=== PATIENT | male | born 2000 | race African-American/Black ===

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

== ENCOUNTER 2022-02-12 17:16 | Emergency (ER) | payer SELFPAY ==
[2022-02-12 17:33] VITALS: BP 123/65; PULSE 90; RESP 16; TEMP 36.6; O2SAT 100
--- NOTE | 2022-02-12 18:18 | ED.GENADULT ---
HPI - General Adult General Chief complaint: Upper Respiratory Infection Stated complaint: Sore Throat Source: patient Mode of arrival: ambulatory Limitations: no limitations History of Present Illness HPI narrative: Patient presents for evaluation of sore throat for the last 4 days. He states his girlfriend had similar symptoms prior to the time of his symptom onset. No fever, chills, nausea, vomiting, respiratory symptoms. He is not taking any medications to assist with his symptoms. He admits to vaping e-cigarettes and uses marijuana socially. His employer requested he have a formal medical evaluation before returning to work. Related Data Allergies Allergy/AdvReac Type Severity Reaction Status Date / Time No Known Allergies Allergy Verified 08/09/20 13:22 Review of Systems Review of Systems: CONSTITUTIONAL: Denies fever, chills, or sweats. EYES: Denies visual changes, redness, or discharge. ENT: Reports sore throat. Denies rhinorrhea, congestion, or otalgia. CARDIOVASCULAR: Denies chest pain, palpitations, or edema. RESPIRATORY: Denies cough or dyspnea. GASTROINTESTINAL: Denies abdominal pain, nausea, vomiting, or diarrhea. GENITOURINARY: Denies dysuria or hematuria. SKIN: Denies rash or itching. MUSCULOSKELETAL: Denies back pain, joint pain, or myalgia. NEUROLOGIC: Denies headache, numbness, dizziness, or weakness. PSYCHIATRIC: Denies anxiety or depression. 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 Per patient Asthma Seasonal allergies Surgical History Surgical History No significant past surgical history Family History Family History Other Asthma Diabetes mellitus Family history of malignant neoplasm Hypertension Social History Social History Smoking status: Current every day smoker Tobacco type: e-cigarettes/vaping Alcohol intake: never Substance use: current Substance use type: marijuana Living arrangements: with friend(s) Additional occupation/education comments: Works in [employer] industry Gender identity (if verbalized by the patient): Male Sexual Orientation (if Verbalized by the Patient): Straight or Heterosexual Spiritual care concerns: No Exam Narrative: GENERAL: Well-appearing, well-nourished, and in no acute distress. HEAD: Normocephalic, atraumatic. EYES: PERRLA and EOMI. ENT: Nares clear, no rhinorrhea or epistaxis. Mucous membranes moist. Bilateral tonsillar enlargement with white exudate. Uvula is midline. Bilateral TMs pearly carranza nonbulging NECK: Supple. No adenopathy or masses. No carotid bruits or JVD CHEST: Clear to auscultation. No respiratory distress. No wheezes rales or rhonchi HEART: Regular rate and rhythm. No murmur heard. Normal peripheral pulses. ABDOMEN: Soft, nontender, nondistended, normal active bowel sounds. EXTREMITIES: Normal range of motion. No edema. SKIN: Warm, dry, no rash. NEURO: No focal deficits. Alert and oriented x3. PSYCH: Normal mood and affect. Course Course Emergency Course: This is a 21-year-old male who present with complaints of sore throat. Rapid strep was negative. He has bilateral tonsillar enlargement and white exudate. We will treat with oral abx. He should follow up outpatient for further evaluation and treatment and return for worsening symptoms. Pt in agreement with plan of care. Level of Care: Express Care Visit Vital Signs Vital signs: Vital Signs Temperature 36.6 C 02/12/22 17:33 Pulse Rate 90 02/12/22 17:33 Respiratory Rate 16 02/12/22 17:33 Blood Pressure 123/65 02/12/22 17:33 Pulse Oximetry 100 02/12/22 17:33 Temperature 36.6 C 02/12/22 17:33 Pulse Rate 90 02/12/22 17:33 Respiratory Rate 16 02/12/22
== END 2022-02-12 17:50 | disposition home or self-care (01) ==
PROVIDERS: Emergency Provider Nurse Practitioner
DX: J02.9 Acute pharyngitis, unspecified (principal); J45.909 Unspecified asthma, uncomplicated; F17.290 Nicotine dependence, other tobacco product, uncomplicated; F12.90 Cannabis use, unspecified, uncomplicated
CPT/HCPCS: 87081; 87880; 99213; G0463

== ENCOUNTER 2024-04-12 19:55 | Emergency (ER) | payer BC, SELFPAY ==
--- NOTE | ~2024-04-12 | XR_ITS ---
Portable chest x-ray Comparison: 03/31/2015 Clinical History: Syncope Findings: Lungs are clear, without focal consolidation or pleural effusion. Cardiomediastinal silho uette is stable. Bones and soft tissues are unremarkable. Impression: Normal chest. Reviewed, dictated and finalized at location . Impression: Normal chest.
--- NOTE | ~2024-04-12 | CT_ITS ---
Non-contrast Head CT History: Head injury Technique: Axial non-contrast imaging of the brain was performed. Dose reduction technique was used on this scan by utilizing automated exposure control and iterative reconstruction technique. The dose -length product (DLP) was 605.33 mGy-cm. Findings: There is no evidence of intracranial hemorrhage, mass lesion, or acute infarct. Brain par enchyma appears normal. The ventricles and subarachnoid spaces are normal in size. The calvarium ap pears normal. The visualized paranasal sinuses and mastoid air cells are clear. Impression: No significant abnormality seen. Reviewed, dictated and finalized at location . Impression: No significant abnormality seen.
--- NOTE | 2024-04-12 20:07 | ECG_ITS ---
Test Date: 2024-04-12 20:19:44 Measurements Intervals [place] Rate: 94 P: 76 NC: 126 QRS: 88 QRSD: 90 T: 70 QT: 334 QTc: 418 Interpretive Statements SINUS RHYTHM WITH SINUS ARRHYTHMIA LIMB LEAD REVERSAL NORMAL ECG No previous ECG available for comparison Electronically Signed On 04-12-2024 21:01:30 CDT by Merlin Palm D.O.
[2024-04-12 20:09] VITALS: BP 134/80; PULSE 97; RESP 20; TEMP 38.2; O2SAT 100
[2024-04-12 20:12] VITALS: BP 134/80; PULSE 103; RESP 18; O2SAT 100
[2024-04-12 20:25] VITALS: PULSE 93; O2SAT 100
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
[2024-04-12 20:32] LABS: Basophils Percent Auto 0.3 % (0.2-1.2); Eosinophils Percent Auto 0.1 % (0-4.4); Hematocrit 43.2 % (42.0-52.0); Immature Granulocyte Absolute 0.04 K/mm3 (0.00-0.031); Immature Granulocyte Percent A 0.3 % (0-0.5); Lymphocytes Percent Auto 9.2 % (18.3-44.2); Mean Corpuscular HGB Conc 34.7 g/dl (32-36); Mean Corpuscular Hemoglobin 30.2 pg (26-34); Mean Corpuscular Volume 87.1 fl (80-100); Mean Platelet Volume 10.3 fl (7.4-10.4); Monocytes Absolute Auto 0.7 K/mm3 (0.1-0.6); Monocytes Percent Auto 5.1 % (2.6-8.5); Neutrophils Absolute Auto 11.1 K/mm3 (1.3-6.7); Platelet Count Result 335 k/mm3 (150-375); Red Blood Count 4.96 M/mm3 (4.6-6.20); Red Cell Distribution Width 11.8 % (11.5-14.5)
[2024-04-12 20:38] LABS: Appearance Urine Clear (Clear); Bacteria Urine None Seen /hpf; Bilirubin Urine Negative (Negative); Blood Urine 1+ (Negative); Color Urine Yellow (Yellow); Glucose Urine UA Negative (Negative); Ketones Urine 3+ mg/dL (Negative); Leukocyte Esterase Ur Negative LEU/UL (Negative); Nitrate Urine Negative (Negative); Non Pathogenic Casts 0-2; Protein Urine Negative (Negative); Specific Grav Ur 1.016 (1.001-1.035); Squamous Epithelial Cell Urine None Seen /hpf (Few); WBC Urine 0-5 /hpf (0-3); pH Urine 6.5 (5.0-9.0)
[2024-04-12 20:40] LABS: Add Urine Microscopic? YES
[2024-04-12 20:45] LABS: Alanine Aminotransferase 49 U/L (6-50); Albumin Level 5.1 g/dL (3.5-5.1); Alkaline Phosphatase 69 U/L (38-126); Anion Gap 17 mmol/L (4-12); Aspartate Amino Transferase 199 U/L (17-59); Bilirubin,Total 2.9 mg/dL (0.2-1.3); Blood Urea Nitrogen 23 mg/dL (9-20); Carbon Dioxide 18 mmol/L (22-30); Chloride 103 mmol/L (98-107); Estimated CRCL calculation 85 ml/min; Estimated Glomerular Filt Rate > 60; Ethanol < 10 mg/dL (<10); Glucose 88 mg/dL (65-110); Potassium 3.6 mmol/L (3.4-5.0); Sodium 138 mmol/L (137-145)
[2024-04-12] MEDS: SODIUM CHLORIDE 0.9% IV 1,000 ML 999 ML IV CONT ×2 (20:48→21:23)
[2024-04-12 20:54] LABS: Amphetamine Screen Urine Negative (Negative); Barbiturate Screen Urine Negative (Negative); Benzodiazepines Screen Urine Negative (Negative); Cannabinoid Screen Urine Positive (Negative); Cocaine Screen Urine Negative (Negative); Methadone Screen Urine Negative (Negative); Opiate Screen Urine Negative (Negative); Phencyclidine Screen Urine Negative (Negative)
[2024-04-12 21:12] LABS: Influenza A QL RT-PCR Negative (Negative); Influenza B QL RT-PCR Negative (Negative); RSV RNA, RT-PCR Negative (Negative); SARS-CoV-2 RNA PCR Negative (Negative)
[2024-04-12 21:52] VITALS: BP 130/68; PULSE 101; RESP 18; O2SAT 100
== END 2024-04-12 22:26 | disposition home or self-care (01) ==
PROVIDERS: Emergency Provider Emergency Medicine
DX: S09.90XA Unspecified injury of head, initial encounter (principal); F41.9 Anxiety disorder, unspecified; F17.290 Nicotine dependence, other tobacco product, uncomplicated; Y04.2XXA Assault by strike against or bumped into by another person, initial encounter; Z20.822 Contact with and (suspected) exposure to COVID-19
CPT/HCPCS: 36415; 70450; 71045; 80053; 80307; 81001; 85025; 87637; 93005; 96360; 96361; 99284; J7030

== ENCOUNTER 2024-10-15 02:56 | Emergency (ER) | payer BC, SELFPAY ==
[2024-10-15 02:56] VITALS: BP 113/74; PULSE 77; RESP 16; TEMP 36.7; O2SAT 100
[2024-10-15 03:28] LABS: Basophils Percent Auto 0.5 % (0.2-1.2); Eosinophils Percent Auto 0.4 % (0-4.4); Hematocrit 41.6 % (42.0-52.0); Hemoglobin 14.3 g/dL (14.0-18.0); Immature Granulocyte Absolute 0.02 K/mm3 (0.00-0.031); Immature Granulocyte Percent A 0.2 % (0-0.5); Lymphocytes Absolute Auto 1.44 K/mm3 (0.9-3.2); Lymphocytes Percent Auto 17.5 % (18.3-44.2); Mean Corpuscular HGB Conc 34.4 g/dl (32-36); Mean Corpuscular Hemoglobin 30.8 pg (26-34); Mean Corpuscular Volume 89.5 fl (80-100); Mean Platelet Volume 9.9 fl (7.4-10.4); Monocytes Absolute Auto 0.5 K/mm3 (0.1-0.6); Monocytes Percent Auto 6.3 % (2.6-8.5); Neutrophils Absolute Auto 6.2 K/mm3 (1.3-6.7); Neutrophils Percent Auto 75.1 % (45.5-73.1); Platelet Count Result 304 k/mm3 (150-375); Red Blood Count 4.65 M/mm3 (4.6-6.20); Red Cell Distribution Width 12.1 % (11.5-14.5); White Blood Count 8.2 K/mm3 (4.5-10.0)
[2024-10-15 03:37] LABS: Ethanol 36 mg/dL (<10)
[2024-10-15 03:43] LABS: Alanine Aminotransferase 45 U/L (6-50); Albumin Level 4.5 g/dL (3.5-5.1); Alkaline Phosphatase 49 U/L (38-126); Amphetamine Screen Urine Negative (Negative); Anion Gap 12 mmol/L (4-12); Aspartate Amino Transferase 38 U/L (17-59); Barbiturate Screen Urine Negative (Negative); Benzodiazepines Screen Urine Negative (Negative); Bilirubin,Total 1.7 mg/dL (0.2-1.3); Blood Urea Nitrogen 13 mg/dL (9-20); Calcium 9.2 mg/dL (8.4-10.2); Cannabinoid Screen Urine Positive (Negative); Carbon Dioxide 24 mmol/L (22-30); Chloride 103 mmol/L (98-107); Cocaine Screen Urine Negative (Negative); Estimated Glomerular Filt Rate > 60; Glucose 103 mg/dL (65-110); Methadone Screen Urine Negative (Negative); Opiate Screen Urine Negative (Negative); Phencyclidine Screen Urine Negative (Negative); Potassium 3.8 mmol/L (3.4-5.0); Sodium 139 mmol/L (137-145)
[2024-10-15 03:47] LABS: Add Urine Microscopic? YES; Appearance Urine Clear (Clear); Bacteria Urine None Seen /hpf; Bilirubin Urine Negative (Negative); Blood Urine 1+ (Negative); Color Urine Yellow (Yellow); Glucose Urine UA Negative (Negative); Ketones Urine Negative (Negative); Leukocyte Esterase Ur Negative LEU/UL (Negative); Nitrate Urine Negative (Negative); Non Pathogenic Casts 0-2; Protein Urine Negative (Negative); Specific Grav Ur 1.018 (1.001-1.035); Squamous Epithelial Cell Urine None Seen /hpf (Few); WBC Urine 0-5 /hpf (0-3)
--- NOTE | 2024-10-15 03:59 | PC.NURSE ---
Debbie Segura (pt great aunt) wanted to leave contact information in case pt would like to contact her. .
[2024-10-15 04:06] LABS: Influenza A QL RT-PCR Negative (Negative); Influenza B QL RT-PCR Negative (Negative); RSV RNA, RT-PCR Negative (Negative); SARS-CoV-2 RNA PCR Negative (Negative)
[2024-10-15 05:31] LABS: Free T4 Free Thyroxine Reflex 1.23 ng/dL (0.78-2.19)
[2024-10-15 06:27] LABS: Total Triiodothyronine (T3) 1.99 NG/ML (0.97-1.69)
--- NOTE | 2024-10-15 08:39 | ED_ITS ---
HPI - Psych General Chief Complaint: Psychiatric Symptoms Stated Complaint: invol Time Seen by Provider: 10/15/24 07:05 History of Present Illness HPI Narrative: Patient is a 23-year-old male who presents ER after trying to hang himself. Patient made multiple efforts to hang himself using electrical cord. It kept slipping off the supporting bar. Patient reports he would choke and grab at it. He sent video of this to his baby's mama. He reports they recently broke up a week ago and she sent him a picture of her out with another man. He is also currently living in a hotel and is supposed to be starting back school. He has tried to commit suicide in a similar fashion in the past when he was in high school. He was drinking alcohol last night. He is remorseful of the event. Related Data Allergies Allergy/AdvReac Type Severity Reaction Status Date / Time No Known Allergies Allergy Verified 10/15/24 02:56 Review of Systems 2 Review of Systems: All systems reviewed & are unremarkable except as noted in HPI and below Constitutional: Constitutional: Reports no additional constitutional complaints Cardiovascular: Cardiovascular: Reports no additional cardiovascular complaints Respiratory: Respiratory: Reports no additional respiratory complaints Musculoskeletal: Musculoskeletal: Reports no additional musculoskeletal complaints Integumentary/Breasts: Skin/Breast: Reports system reviewed and no additional complaints, except as docu Psychiatric: Psychiatric: Denies anxiety, Reports depression, Denies homicidal ideation and Reports suicidal ideation [facility] Past Medical History Medical History ADHD 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 Per patient Asthma Seasonal allergies Surgical History Surgical History No significant past surgical history Family History Family History Other Asthma Diabetes mellitus Family history of malignant neoplasm Hypertension Social History Social History Smoking status: Current every day smoker Tobacco type: e-cigarettes/vaping Alcohol intake: never Substance use: current Substance use type: marijuana Living arrangements: with friend(s) 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 HEAD: Normocephalic, atraumatic. EYES: PERRL and EOMI. ENT: Mucous membranes moist. NECK: Supple. Slight linear redness upper neck, no swelling/bruising/bruit. CHEST: Clear to auscultation. No respiratory distress. HEART: Regular rate and rhythm. Normal peripheral pulses. EXTREMITIES: Normal range of motion. No edema. SKIN: Warm, dry, no rash. NEURO: Alert and oriented x3. PSYCH: Normal mood and affect. Reports attempted suicide. Course Course Emergency Course: 841: Patient medically cleared for evaluation by [facility] and inpatient psychiatric hospitalization. I feel it is most appropriate for him to be involuntary psychiatric admission. 1718: Accepted to [facility] by Dr. Thomas. Pt did get a nicotine patch. Vital Signs Vital signs: Vital Signs Temperature 98.1 F 10/15/24 02:56 Pulse Rate 77 10/15/24 02:56 Respiratory Rate 16 10/15/24 02:56 Blood Pressure 113/74 10/15/24 02:56 Pulse Oximetry 100 10/15/24 02:56 Oxygen Delivery Room Air 10/15/24 02:56 Temperature 98.1 F 10/15/24 17:15 Pulse Rate 95 10/15/24 17:15 Respiratory Rate 20 10/15/24 17:15 Blood Pressure 108/74 10/15/24 17:15 Pulse Oximetry 100 10/15/24 17:15 Oxygen Delivery Room Air 10/15/24 17:13 MDM - Psych Lab Data 10/15/24 03:17 10/15/24 03:17 Labs: Lab Results 10/15/24 Range/Units 03:17 WBC 8.2 (4.5-10.0) K/mm3 RBC 4.65 (4.6-6.20) M/mm3 Hgb 14.3 (14.0-18.0) g/dL Hct 41.6 L (42.0-52.0) % MCV 89.5 (80-100) fl MCH 30.8 (26-34) pg MCHC 34.4 (32-36) g/dl RDW 12.1 (11.5-14.5) % Plt Count 304 (150-375) k/mm3 MPV 9.9 (7.4-10.4) fl Immature Gran % (Auto) 0.2 (0-0.5) % Neut % (Auto) 75.1 H (45.5-73.1) % Lymph % (Auto) 17.5 L (18.3-44.2) % [place] % (Auto) 6.3 (2.6-8.5) % Eos % (Auto) 0.4 (0-4.4) % Baso % (Auto) 0.5 (0.2-1.2) % Lymph # (Auto) 1.44 (0.9-3.2) K/mm3 Jewell # (Auto) 0.5 (0.1-0.6) K/mm3 Eos # (Auto) 0.0 (0-0.3) K/mm3 Baso # (Auto) 0.0 (0.0-0.1) K/mm3 Abs Immat Gran (auto) 0.02 (0.00-0.031) K/mm3 Absolute Neuts (auto) 6.2 (1.3-6.7) K/mm3 Absolute Nucleated RBC 0.000 (0.0-0.012) K/mm3 Nucleated RBC % 0.0 (0.0-0.2) % Sodium 139 (137-145) mmol/L Potassium 3.8 (3.4-5.0) mmol/L Chloride 103 (98-107) mmol/L Carbon Dioxide 24 (22-30) mmol/L Anion Gap 12 (4-12) mmol/L BUN 13 D (9-20) mg/dL Creatinine 0.83 (0.7-1.3) mg/dL Estim Creat Clear Calc Not Reportable Estimated GFR > 60 (59 - ) Glucose 103 (65-110) mg/dL Calcium 9.2 (8.4-10.2) mg/dL Total Bilirubin 1.7 H (0.2-1.3) mg/dL AST 38 (17-59) U/L ALT 45 (6-50) U/L Alkaline Phosphatase 49 (38-126) U/L Total Protein 8.0 (6.3-8.2) g/dL Albumin 4.5 (3.5-5.1) g/dL TSH (Reflex) 4.080 (0.465-4.68) uIU/mL Free T4 1.23 (0.78-2.19) ng/dL Total T3 1.99 H (0.97-1.69) NG/ML Urine Color Yellow (Yellow) Urine Appearance Clear (Clear) Urine pH 6.0 (5.0-9.0) Ur Specific [place] 1.018 (1.001-1.035) Urine Protein Negative (Negative) mg/dL Urine Glucose (UA) Negative (Negative) mg/dL Urine Ketones Negative (Negative) mg/dL Ur Blood (Man) 1+ H (Negative) Urine Nitrate Negative (Negative) Urine Bilirubin Negative (Negative) Urine Urobilinogen 1.0 (<2.0) mg/dL Leukocyte Esterase Rfl Negative (Negative) MARY/UL Urine RBC 3-5 H (0-2) /hpf Urine WBC 0-5 (0-3) /hpf Ur Squamous Epith Cells None seen (Few) /hpf Urine Bacteria None seen /hpf Urine Casts 0-2 Urine Opiates Screen Negative (Negative) Urine Methadone Screen Negative (Negative) Ur Barbiturates Screen Negative (Negative) Ur Phencyclidine Scrn Negative (Negative) Ur Amphetamine Screen Negative (Negative) U Benzodiazepines Scrn Negative (Negative) Urine Cocaine Screen Negative (Negative) U Cannabinoids Screen Positive A (Negative) Ethyl Alcohol 36 (<10) mg/dL Influenza A (RT-PCR) Negative (Negative) Influenza B (RT-PCR) Negative (Negative) RSV (RT-PCR) Negative (Negative) SARS-CoV-2 RNA (RT-PCR) Negative (Negative) Discharge Plan Discharge Clinical Impression: Suicide attempt Patient Disposition: Psychiatric Hosp Condition: Stable Patient Language: Maldivian Prescriptions: No Action penicillin V potassium 500 mg tablet 500 mg PO Q6H 10 Days Qty: 40 0RF lorazepam [Ativan] 0.5 mg tablet 0.5 mg PO BID PRN (Reason: anxiety) Qty: 10 0RF Follow-up/Referrals: UNKNOWN,DOCTOR [Primary Care Provider] -
[2024-10-15 09:19] VITALS: BP 127/88; PULSE 70; RESP 20; TEMP 36.8; O2SAT 100
--- NOTE | 2024-10-15 10:35 | PC.NURSE ---
records faxed to [place] per [facility]
--- NOTE | 2024-10-15 12:27 | PC.NURSE ---
pt on phone w/ Susanne from [employer] to answer questions
--- NOTE | 2024-10-15 12:30 | PC.NURSE ---
updated records w/ cert and petition sent to [facility] via fax as requested at this time
[2024-10-15 14:24] VITALS: BP 120/74; PULSE 60; RESP 18; O2SAT 100
[2024-10-15] MEDS: NICOTINE (*PBKC) 7 MG PATCH 1 PATCH TRANSDERM (14:31)
--- NOTE | 2024-10-15 16:39 | PC.NURSE ---
ordered pt dinner tray
[2024-10-15 17:13] VITALS: BP 108/74; PULSE 20; RESP 20; TEMP 36.7; O2SAT 100
[2024-10-15 17:15] VITALS: BP 108/74; PULSE 95; RESP 20; TEMP 36.7; O2SAT 100
== END 2024-10-15 18:20 ==
PROVIDERS: Emergency Medicine; Emergency Provider Emergency Medicine
DX: T14.91XA Suicide attempt, initial encounter (principal); X83.8XXA Intentional self-harm by other specified means, initial encounter; F17.290 Nicotine dependence, other tobacco product, uncomplicated; F12.90 Cannabis use, unspecified, uncomplicated; Z11.52 Encounter for screening for COVID-19
CPT/HCPCS: 36415; 80053; 80307; 81001; 82077; 84439; 84443; 84480; 85025; 87637; 99285; A9270